=== PATIENT | male | born 1965 | race Caucasian/White ===

== ENCOUNTER 2024-02-23 12:29 | Outpatient (CLI) | payer OTHER, SELFPAY ==
--- NOTE | ~2024-02-23 | PE_ITS ---
EXAMINATION: PET_PETPSMAST_PT DATE: 02/23/2024 15:03 INDICATION: Prostate cancer TECHNIQUE: 4.925 mCi of Locametz Ga-68([id number]) was administered i.v. Low dose computed shannon ography (CT) images were acquired from the base of the brain to the base of the brain to the proximal thighs for attenuation correction and anatomic localization. Positron emission tomography (PET) imag es were acquired in the same distribution beginning 84 minutes after injection. Images including fuse d PET/CT images were reconstructed in axial, coronal, and sagittal planes. Automated exposure control technique was employed. The dose-length product was 1185.62mGy-cm. COMPARISON: None FINDINGS: Head/neck: Typical pattern of symmetric physiologic increased activity in the lacrimal, parotid and submandibula r glands as well as along the mucosa of the nasal and oral cavities, pharynx and hypopharynx. No path ologically enlarged cervical lymphadenopathy or suspicious foci of increased uptake in the visualized head or neck. Chest: Mild dependent atelectasis in bilateral lower lobes. No suspicious pulmonary nodules, pneumonia or ot her pulmonary infiltrates or pleural effusion. Heart size is normal. Small amount of atherosclerotic coronary artery calcification. No pericardial effusion. Thoracic aorta is normal in caliber. No patho logically enlarged or PSMA avid thoracic lymphadenopathy. Abdomen/pelvis/proximal thighs: Physiologic renal accumulation and excretion of activity in the kidneys, bladder and along portions o f ureters. Prostatomegaly measuring 4.8 x 3.4 cm. There is focal mildly increased PSMA uptake with ma ximal SUV of 4.3 by without radiologic correlate at the right inferior prostate which given the incre ased PSA level is suspicious for primary prostate cancer. There are relatively symmetric foci of mild increased uptake more cephalad at the left and right aspects of the posterior prostate near the junc tion with the bilateral seminal vesicles with identical maximal SUV of 4.2. Normal degree and slightl y heterogenous pattern of increased uptake throughout the liver and spleen without radiologic correla te or dominant PSMA avid lesion. The gallbladder, pancreas and bilateral adrenal glands are normal. M oderate uptake scattered throughout the bowels with typical duodenal and proximal jejunal predominanc e and without radiologic correlate, also likely physiologic. No other abnormal foci of increased upta ke or pathologically enlarged lymphadenopathy in the abdomen, pelvis or proximal thighs. Musculoskeletal: Mild scattered degenerative skeletal changes are no suspicious lytic, blastic or PSMA avid bone lesio ns. IMPRESSION: 1. Asymmetric mild increased uptake at the right inferior prostate and relatively symmetric foci of m ild uptake bilaterally at the posterosuperior prostate which are suspicious for primary prostate canc er. No lesion suspicious for metastatic disease. Reviewed, dictated and finalized at location A. IMPRESSION: 1. Asymmetric mild increased uptake at the right inferior prostate and relative ly symmetric foci of mild uptake bilaterally at the posterosuperior prostate wh ich are suspicious for primary prostate cancer. No lesion suspicious for metast atic disease.
== END 2024-02-23 12:30 | disposition home or self-care (01) ==
PROVIDERS: Visit Provider Urology
DX: C61 Malignant neoplasm of prostate (principal)
CPT/HCPCS: 78815; A9596